=== PATIENT | male | born 1995 | race Caucasian/White ===

== ENCOUNTER → 2016-05-03 | Outpatient (REF) ==
[~2016-05-03] MED LIST: FOCALIN XR20 MG PO
== END ==
LOC: WSOH 14:03
DX: Z76.89 Persons encountering health services in other specified circumstances (principal)

== ENCOUNTER 2016-12-26 22:04 | Emergency (ER) | payer BC ==
[~2016-12-26] VITALS: Ht 182.9 cm; Wt 102.3 kg
[~2016-12-26 22:04] MED LIST changes: +FOCALIN XR10 MG PO; -FOCALIN XR20 MG PO
[2016-12-26 22:09] VITALS: BP 158/83; PULSE 66; TEMP 98.2
[2016-12-26] MEDS ORDERED: ZYRTEC 10MG10 MG PO (22:12)
[2016-12-26] MEDS ORDERED: AMOXICILLIN 8751 TAB PO (23:24)
== END 2016-12-26 23:44 | disposition home or self-care (01) ==
LOC: COL.ER 22:04
DX: S02.32XA Fracture of orbital floor, left side, initial encounter for closed fracture (principal); S02.40DA Maxillary fracture, left side, initial encounter for closed fracture; F98.8 Other specified behavioral and emotional disorders with onset usually occurring in childhood and adolescence; Y04.0XXA Assault by unarmed brawl or fight, initial encounter; Y92.410 Unspecified street and highway as the place of occurrence of the external cause